=== PATIENT | male | born 1950 | race Two or more races ===

== ENCOUNTER 2019-06-15 09:18 | Emergency (ER) | payer OTHER ==
[~2019-06-15] VITALS: Ht 180.3 cm; Wt 99.8 kg
[2019-06-15] MEDS ORDERED: VASOTEC20 M1 (09:30)
[2019-06-15] MEDS ORDERED: FORTAMET1000 MG (09:30)
[2019-06-15] MEDS ORDERED: GLIMEPIRIDE4 M1 (09:30)
[2019-06-15] MEDS ORDERED: ASPIR 8181 MG (09:31)
[2019-06-15] MEDS ORDERED: DIURETICO (09:31)
== END 2019-06-15 14:37 | disposition home or self-care (01) ==
LOC: ER 09:18
DX: K64.8 Other hemorrhoids (principal); K62.5 Hemorrhage of anus and rectum